=== PATIENT | female | born 1990 | race Two or more races ===

== ENCOUNTER 2016-05-17 10:56 | Emergency (ER) | payer MEDICAID ==
[~2016-05-17] VITALS: Ht 162.6 cm; Wt 54.4 kg
[2016-05-17 11:06] VITALS: BP 122/59; PULSE 90; RESP 20; TEMP 97.6; O2SAT 98
--- NOTE | 2016-05-17 11:10 | NUR ---
Placed in room 8 by Flor
--- NOTE | 2016-05-17 11:20 | NUR ---
ER at bedside examining patient.
[2016-05-17] MEDS ORDERED: IBUPROFEN 800 MG TABLET PO ONE (11:30)
[2016-05-17] MEDS ORDERED: DIPH-TET-PERTUS Vaccine 0.5 ML VIAL (ADACEL) IM ONE (11:30)
[2016-05-17] MEDS ORDERED: BACITRACIN 1 GM OINT TP ONE (11:30)
--- NOTE | 2016-05-17 12:21 | NUR ---
Wound cleaned with NS, bacitracin applied per Dr. Carbajal's order, bleeding controlled, kerlix applied cap refill [address] Carbajal at bedside discussing Xray result and plan of care. Pt express concern over possiable tendon damage Dr. Carbajal examined stating limited mobility due to pain but informed pt to f/u PMD if limited mobility continue and to f/u with 2-3 days for wound check. Pt verbilized understanding. Pt moved to requesting additional pain medication
[2016-05-17] MEDS ORDERED: HYDROcodone/ACETAMIN 10-325 MG TAB PO ONE (12:30)
[2016-05-17 12:48] VITALS: BP 119/81; PULSE 74; RESP 19; O2SAT 99
--- NOTE | 2016-05-17 12:49 | NUR ---
Patient given written and verbal discharge instructions and verbalizes understanding. ER MD discussed with patient the results and treatment provided. Given copies of tests performed in ER. Patient in stable condition. ID arm band removed. Rx of NORCO, AUGMENTIN given. Patient educated on pain management and to follow up with PMD. Pain Scale /10. Opportunity for questions provided and answered.
== END 2016-05-17 12:48 | disposition home or self-care (01) ==
LOC: SED 10:56
DX: S50.871A Other superficial bite of right forearm, initial encounter (principal); W54.0XXA Bitten by dog, initial encounter; Y93.89 Activity, other specified; Y92.89 Other specified places as the place of occurrence of the external cause; Y99.8 Other external cause status
CPT/HCPCS: 73090; 81025; 90715; 99284